=== PATIENT | female | born 1955 | race Caucasian/White ===

== ENCOUNTER 2019-11-01 14:13 | Outpatient (CLI) | payer MEDICARE, MEDICAID, SELFPAY ==
--- NOTE | 2019-11-01 14:24 | MM_ITS ---
WS: [id number] BILATERAL SCREENING DIGITAL MAMMOGRAM WITH CAD HISTORY: SCREENING COMPARISON: 08/19/2018 and 04/15/2017 Bilateral CC and MLO views submitted. Computer aided detection analyzed. Breast composition: There are scattered areas of fibroglandular density. No suspicious masses, microc alcifications or architectural distortion. MM/[place] [id number] IMPRESSION: BI-RADS: 1-Negative FOLLOW UP: 1 Year Follow-up
== END 2019-11-01 14:14 | disposition home or self-care (01) ==
LOC: RADSHAW 14:20
PROVIDERS: Family Provider Internal Medicine; PCP Internal Medicine; Visit Provider Internal Medicine
DX: Z12.31 Encounter for screening mammogram for malignant neoplasm of breast (principal)
CPT/HCPCS: 77067

== ENCOUNTER 2019-11-28 19:37 | Emergency (ER) | payer MEDICARE, MEDICAID, SELFPAY ==
[2019-11-28] VITALS (17 sets, daily range): BP systolic 139–165; BP diastolic 72–111; PULSE 75–85; RESP 16–18; TEMP 36.5; O2SAT 93–97; BMI 38.3
--- NOTE | 2019-11-28 20:08 | ED_ITS ---
Entered by Tata Amezcua, acting as scribe for Faisal Colin DO HPI - Female Genitourinary General: Chief complaint: Abdominal Pain Stated complaint: abd pain Time Seen by Provider: 11/28/19 20:07 Source: patient and family Mode of arrival: ambulatory History of Present Illness: HPI Narrative: 64 y/o female presents to the ED with complaint of painful urination. Pt states she has had some accompanying abd pain. MD elicited complaint: dysuria Severity: mild Urinary symptoms: Dysuria Associated symptoms: Reports abdominal pain; Deny headache(s), nausea or syncope Review of Systems Const: Denies: fever, chills, body aches, fatigue, malaise or night sweats Eyes: Denies: change in vision or blurry vision ENMT: Denies: throat pain, oral sores/lesions, dental pain, nasal discharge or nasal congestion Card: Denies: chest pain, palpitations, irregular heart rhythm, edema, syncope, shortness of breath on exertion, shortness of breath when lying down or leg pain with exertion Resp: Denies: shortness of breath, productive cough, non-productive cough or wheezing GI: Reports: abdominal pain; Denies: nausea, vomiting, vomiting blood, coffee grounds in vomit, difficulty swallowing, heartburn/indigestion, diarrhea, constipation, cramping, blood in stool or black tarry stool : Reports: painful urination, urinary frequency and urinary urgency; Denies: flank pain, urinary incontinence or blood in urine Musc: Denies: neck pain, back pain, extremity pain, extremity swelling, joint pain or joint swelling Skin/Breast: Denies: rash, itching or redness Neuro: Denies: headache, numbness in extremities, weakness in extremities, changes in sensation, lack of coordination, difficulty walking, frequent falls, dizziness, vertigo or confusion Psych: Denies: anxiety, depression, loss of interest, visual hallucinations, auditory hallucinations, suicidal ideation or homicidal ideation Endo: Denies: excessive urination, excessive thirst, tired all the time or cold intolerance Vickey/Lymph: Denies: easy bruising, easy bleeding, petechiae, enlarged lymph nodes or tender lymph nodes PFSH ED PFSH: Statuses (acute, chronic, etc) shown below reflect problem list status as previously entered and may not be historically accurate Social History Smoking and tobacco status: never smoked Physical Exam Const: COMMON NORMALS: average body habitus, oriented x3 and alert GENERAL APPEARANCE: cooperative, comfortable and well developed NUTRITIONAL APPEAR ANCE: obese ORIENTATION/CONSCIOUSNESS: Yes awake, Yes oriented to person and Yes oriented to place HENMT: COMMON NORMALS: normocephalic, head/scalp atraumatic, external ears normal, EAC's normal, TM's normal bilaterally, external nose normal, moist oral mucous membranes and oropharynx normal HEAD & SCALP: normocephalic and atraumatic NOSE: external nose normal EXTERNAL EAR: Yes external ears normal EXTERNAL AUDITORY CANAL: EAC's normal TYMPANIC MEMBRANE: TM's normal bilaterally MOUTH: oral and palatal mucosa normal, lip normal and tongue normal THROAT: posterior oropharynx normal and tonsils normal Eye: COMMON NORMALS: PERRL, EOMs intact bilaterally, conjunctivae normal and no scleral icterus CONJUNCTIVA: Yes conjunctivae normal PUPIL: Yes PERRL Neck/C-Spine: COMMON NORMALS: full ROM, no lymphadenopathy, supple, no meningeal signs and thyroid normal THYROID: thyroid normal and asymmetrical Lymph: LYMPHATIC: no lymphadenopathy noted Resp: COMMON NORMALS: normal respiratory effort, no retractions, no use of accessory muscles and clear to auscultation bilaterally AUSCULTATION: clear to auscultation bilaterally Cardio: COMMON NORMALS: regular rate and regular rhythm RATE: regular rate RHYTHM: regular rhythm HEART SOUNDS: no murmurs GI: COMMON NORMALS: normal to inspection, nondistended, normoactive bowel sounds, soft to palpation and no hepatosplenomegaly AUSCULTATION: Yes normoactive bowel sounds PALPATION: Yes soft and Yes no hepatosplenomegaly : COMMON NORMALS: Yes no CVA tenderness BLADDER/KIDNEY EXAM: Yes no CVA tenderness Back/Pelvis: COMMON NORMALS: no CVA tenderness LUMBAR SPINE/LOWER BACK: Yes normal to inspection Extremity: COMMON NORMALS: no clubbing, cyanosis or edema, no calf tenderness and no pedal edema Neuro: COMMON NORMALS: oriented x3 SENSORIUM/ORIENTATION: Yes alert, Yes oriented to person and Yes oriented to place MENINGEAL SIGNS: Yes no meningeal signs Skin: COMMON NORMALS: no rashes or lesions noted and skin turgor normal GENERAL SKIN EXAM: no rashes or lesions noted and turgor normal Course ED course: Reviewed findings with the patient's no evidence of cystitis. Discussed different options she would prefer to just go home she states she is feeling much better discharge home recheck in the emergency room if symptoms recur or worsen Vital Signs: Vital signs: Vital Signs Temperature 97.7 F 11/28/19 20:14 Pulse Rate 77 11/28/19 21:46 Respiratory Rate 18 11/28/19 21:46 Blood Pressure 160/77 11/28/19 21:46 Pulse Oximetry 94 11/28/19 21:46 MDM - Female Lab Data: Labs: Lab Results 11/28/19 11/28/19 11/28/19 Range/Units 20:20 20:20 21:15 WBC 6.8 (4.0-10.0) 10^3/ uL RBC 4.36 (4.1-5.3) 10^6/u L Hgb 12.9 (11.5-15.3) g/dL Hct 38.6 (37.0-47.0) % MCV 88.5 (81-99) fL MCH 29.6 (28.0-34.0) pg MCHC 33.4 (30.0-36.0) g/dL RDW 12.5 (12.1-15.1) % Plt Count 179 (130-400) 10^3/c mm MPV 11.0 H (7.4-10.4) fL Neut % (Auto) 53.5 % Lymph % (Auto) 31.8 % [place] % (Auto) 8.4 % Eos % (Auto) 5.9 % Baso % (Auto) 0.3 % Neut # (Auto) 3.6 (1.8-7.7) 10^3/u L Lymph # (Auto) 2.2 (0.8-4.8) 10^3/u L [place] # (Auto) 0.6 (0.2-0.9) 10^3/u L Eos # (Auto) 0.4 (0.0-0.8) 10^3/u L Baso # (Auto) 0.0 (0.0-0.1) 10^3/u L Nucleated RBC % (a uto) 0 % Nucleated RBCs # 0.0 /100WBC Sodium 137 (136-145) mmol/L Potassium 4.3 (3.5-5.1) mmol/L Chloride 102 (98-107) mmol/L Carbon Dioxide 25 (22-29) mmol/L Anion Gap 14.3 (5-19) BUN 26 H (8-23) mg/dL Creatinine 1.1 H (0.5-0.9) mg/dL GFR Calculation 49.8 L (90-130) mL/min Glucose 86 (74-106) mg/dL Calcium 9.5 (8.5-10.5) mg/dL Total Bilirubin 0.2 (0.15-1.2) mg/dL AST 36 H (0-32) U/L ALT 36 H (0-33) U/L Alkaline Phosphata se 68 (35-105) IU/L Total Protein 7.2 (6.6-8.7) g/dL Albumin 4.4 (3.5-5.2) g/dL Globulin 2.8 (1.3-4.6) g/dL Lipase 26 (13-60) U/L Urine Color Yellow (Yellow) Urine Appearance Clear (CLEAR) Urine pH 5 (5-7) Ur Specific Gravit y 1.025 (1.005-1.030) Urine Protein Neg (Negative) Urine Glucose (UA) Norm (Normal) Urine Ketones Negative (Negative) Urine Occult Blood Neg (Negative) Urine Nitrate Negative (Negative) Urine Bilirubin 1+ H (NEGATIVE) Urine Urobilinogen 4 H (Negative) mg/dL Ur Leukocyte Eva ase Negative (Negative) Discharge Plan Discharge Patient Disposition: Home, Self-Care Clinical Impression: Abdominal pain Condition: Stable Discharge Orders: Discharge Order (Routine); Ordered 11/28/19 Ordered By: Faisal Colin Referrals: [place] Hui MD [Primary Care Provider] - Discharge Diet: Advance as tolerated Discharge Activity: Resume usual activity Patient Instructions: Cholecystitis (ED), Abdominal Pain (ED) Discharge Date/Time: 11/28/19 21:46 Coding Level of Care Code ED Mailroom Clerk for Chg Fwd Exam Problem Focused The documentation recorded by the [employer] Ashley, accurately reflects the service I personally performed and the decisions made by Cristi moreira Curtis L, DO
[2019-11-28 20:28] LABS: Basophils % 0.3 %; Eosinophils # 0.4 10^3/uL (0.0-0.8); Eosinophils % 5.9 %; Hematocrit 38.6 % (37.0-47.0); Hemoglobin 12.9 g/dL (11.5-15.3); Lymphocytes # 2.2 10^3/uL (0.8-4.8); Lymphocytes % 31.8 %; Mean Corpuscular HGB Conc 33.4 g/dL (30.0-36.0); Mean Corpuscular Hemoglobin 29.6 pg (28.0-34.0); Mean Corpuscular Volume 88.5 fL (81-99); Monocytes # 0.6 10^3/uL (0.2-0.9); Monocytes % 8.4 %; Neutrophils # 3.6 10^3/uL (1.8-7.7); Neutrophils % 53.5 %; Nucleated Red Blood Cells % 0 %; Platelet Count 179 10^3/cmm (130-400); Red Blood Count 4.36 10^6/uL (4.1-5.3); Red Cell Distribution Width 12.5 % (12.1-15.1); White Blood Count 6.8 10^3/uL (4.0-10.0)
[2019-11-28 20:49] LABS: Alanine Aminotransferase 36 U/L (0-33); Albumin Level 4.4 g/dL (3.5-5.2); Alkaline Phosphatase 68 IU/L (35-105); Anion Gap 14.3 (5-19); Aspartate Amino Transferase 36 U/L (0-32); Blood Urea Nitrogen 26 mg/dL (8-23); Calcium 9.5 mg/dL (8.5-10.5); Carbon Dioxide 25 mmol/L (22-29); Chloride 102 mmol/L (98-107); Globulin 2.8 g/dL (1.3-4.6); Glomerular Filtration Rate 49.8 mL/min (90-130); Glucose 86 mg/dL (74-106); Lipase 26 U/L (13-60); Potassium 4.3 mmol/L (3.5-5.1); Sodium 137 mmol/L (136-145); Total Bilirubin 0.2 mg/dL (0.15-1.2); Total Protein 7.2 g/dL (6.6-8.7)
[2019-11-28 21:21] LABS: Add Urine Microscopic? NO
[2019-11-28 21:27] LABS: Glucose Urine UA Norm (Normal); Protein Urine Neg (Negative); Specific Gravity, Urine 1.025 (1.005-1.030); Urine Appearance Clear (CLEAR); Urine Color Yellow (Yellow); pH Urine 5 (5-7)
[2019-11-28 21:28] LABS: Bilirubin Urine 1+ (NEGATIVE); Blood Urine Neg (Negative); Ketones Urine Negative (Negative); Leukocyte Esterase Urine Negative (Negative); Nitrate Urine Negative (Negative); Urobilinogen Urine 4 mg/dL (Negative)
== END 2019-11-28 21:46 | disposition home or self-care (01) ==
PROVIDERS: Emergency Medicine; Emergency Provider Family Medicine; Family Provider Internal Medicine; PCP Internal Medicine
DX: R10.9 Unspecified abdominal pain (principal)
CPT/HCPCS: 36415; 80053; 81003; 83690; 85025; 99282

== ENCOUNTER 2019-12-04 21:35 | Emergency (ER) | payer MEDICARE, MEDICAID, SELFPAY ==
[2019-12-04 22:12] VITALS: BP 169/133; PULSE 88; RESP 18; TEMP 36.4; O2SAT 96; BMI 34.6
== END 2019-12-05 00:52 ==
LOC: ER 23:21
PROVIDERS: Emergency Provider Emergency Medicine; Family Provider Internal Medicine; PCP Internal Medicine
DX: Z53.21 Procedure and treatment not carried out due to patient leaving prior to being seen by health care provider (principal)
CPT/HCPCS: 99281; A9270

== ENCOUNTER → 2020-01-03 09:17 | Outpatient (BNVA) | payer MEDICARE, MEDICAID, SELFPAY | PROVIDERS: Family Provider Internal Medicine; PCP Internal Medicine; Referring Provider Internal Medicine; Visit Provider Obstetrics & Gynecology | DX: N81.10 Cystocele, unspecified (principal) | CPT/HCPCS: 81003 ==

== ENCOUNTER 2020-01-22 19:31 | Emergency (ER) | payer MEDICARE, MEDICAID, SELFPAY | END 2020-01-22 19:59 | disposition left against medical advice (07) | PROVIDERS: Emergency Provider Nurse Practitioner Family; Family Provider Internal Medicine; PCP Internal Medicine | DX: Z53.21 Procedure and treatment not carried out due to patient leaving prior to being seen by health care provider (principal) | CPT/HCPCS: 99281 ==

== ENCOUNTER 2020-03-28 12:50 | Observation (INO) | payer MEDICARE, MEDICAID, SELFPAY ==
[2020-03-28] VITALS (18 sets, daily range): BP systolic 118–162; BP diastolic 65–110; PULSE 72–130; RESP 12–25; TEMP 36.2–37; O2SAT 89–99
[2020-03-28] MEDS: sodium chloride 0.9% 1,000 ML 30 ML IV (10:30)
--- NOTE | 2020-03-28 10:33 | ANES.PREANE2 ---
Pre-Anesthetic Assessment Pre-Anesthetic Assessment: Height/Weight: Height 1.45 m Weight 70.307 kg Temp Pulse Resp BP Pulse Ox 97.6 F 72 18 162/110 99 03/28/20 09:57 03/28/20 09:57 03/28/20 09:57 03/28/20 09:57 03/28/20 09:57 Preop Diagnosis: Cystocele stage III Proposed Procedure: Operation Date: 03/28/20 11:10 Proposed Procedures p Anterior Repair Anterior [id number](Not Applicable) - Waylon Horton MD s Midurethral single incision sling 54364 Sacrospinous ligament suspension 19697(Not Applicable) - Waylon Horton MD Familial anesthetic complications: None Was Beta Jose taken within 24 hours: N/A Last intake: Intake Last Liquid Date 03/27/20 Last Liquid Time 13:00 Last Solid Date 03/27/20 Last Solid Time 15:15 Social: Comment: former smokre Exam: Pre-Anes Outpt Exam: alert, oriented x 3, clear to auscultation bilaterally and regular rate & rhythm Airway: Cervical ROM: WNL MP: 1 Additional comments: edentulous Pulmonary: Comments: albuterol inhaler CV/HEM: CV/HEM: HTN GI: GI: GERD Metabolic: Metabolic: Hyperlipidemia and Thyroid Anesthetic Plan: ASA status: 3 Anesthesia: General Risk of > 500 ml blood loss (7ml/kg in children): No Meds/Allergies Current Medications: Current Medications Generic Name Dose Route Start Last Admin Trade Name Freq PRN Reason Stop Dose Admin Sodium Chloride 1,000 mls @ 30 ml s/hr 03/28/20 07:45 03/28/20 10:30 Sodium Chloride 0.9% IV 03/29/20 07:44 30 mls/hr .Q24H PEDRO LUIS Administration PFSH Anesthesia PFSH: Family History Son Diabetes Hypertension Heart attack Family/Other Diabetes grandson Hypertension grandson Social History Smoking and tobacco status: former smoker Quit status (tobacco): has quit using tobacco Year quit tobacco: 1984 Alcohol intake: never Female Reproductive History: Para: 1 Data Anesthesia Cardiac Studies: No Data to Display
--- NOTE | 2020-03-28 10:39 | W.PM.OPSUD ---
Surgery/Procedure H&P Update DATE OF PROCEDURE: March 28, 2020 DATE H&P PERFORMED: 03/26/20 H&P UPDATE INFORMATION: I have reviewed H&P completed within last 30 days, I have examined patient prior to procedure and No changes to prior documentation PREOP DIAGNOSIS: Cystocele stage III PLANNED PROCEDURE: Operation Date: 03/28/20 11:10 Proposed Procedures p Anterior Repair Anterior [id number]/N81.10(Not Applicable) - Waylon Horton MD s Midurethral single incision sling 46211 Sacrospinous ligament suspension [id number](Not Applicable) - Waylon Horton MD
[2020-03-28 10:56] LABS: Basophils % 0.5 %; Eosinophils # 0.3 10^3/uL (0.0-0.8); Eosinophils % 4.6 %; Hematocrit 42.1 % (37.0-47.0); Hemoglobin 13.9 g/dL (11.5-15.3); Lymphocytes # 1.7 10^3/uL (0.8-4.8); Lymphocytes % 30.4 %; Mean Corpuscular Hemoglobin 30.8 pg (28.0-34.0); Mean Corpuscular Volume 93.3 fL (81-99); Mean Platelet Volume 11.7 fL (7.4-10.4); Monocytes # 0.4 10^3/uL (0.2-0.9); Monocytes % 6.7 %; Neutrophils # 3.3 10^3/uL (1.8-7.7); Neutrophils % 57.6 %; Nucleated Red Blood Cells % 0 %; Platelet Count 181 10^3/cmm (130-400); Red Blood Count 4.51 10^6/uL (4.1-5.3); Red Cell Distribution Width 11.9 % (12.1-15.1); White Blood Count 5.7 10^3/uL (4.0-10.0)
[2020-03-28 11:25] LABS: Alanine Aminotransferase 40 U/L (0-33); Albumin Level 4.7 g/dL (3.5-5.2); Alkaline Phosphatase 53 IU/L (35-105); Anion Gap 16.9 (5-19); Aspartate Amino Transferase 37 U/L (0-32); Blood Urea Nitrogen 23 mg/dL (8-23); Calcium 9.3 mg/dL (8.5-10.5); Carbon Dioxide 25 mmol/L (22-29); Chloride 103 mmol/L (98-107); Globulin 2.4 g/dL (1.3-4.6); Glomerular Filtration Rate 62.6 mL/min (90-130); Glucose 96 mg/dL (65-115); Osmolality Calculated 289 mOsm/kg (285-295); Potassium 3.9 mmol/L (3.5-5.1); Sodium 141 mmol/L (136-145); Total Bilirubin 0.3 mg/dL (0.15-1.2); Total Protein 7.1 g/dL (6.6-8.7)
[2020-03-28] MEDS: estrogens Conjugated Cream 30 gm 30 APPLIC VAGINAL (12:14)
[2020-03-28 12:20] LABS: Add Urine Culture? No; Add Urine Microscopic? YES; Bacteria Urine TRACE; Bilirubin Urine Neg (NEGATIVE); Blood Urine Neg (Negative); Glucose Urine UA Norm (Normal); Ketones Urine Negative (Negative); Leukocyte Esterase Urine Trace (Negative); Mucus Urine 1+; Nitrate Urine Negative (Negative); Protein Urine Neg (Negative); Squamous Epithelial Cell Urine 0-4 (0-5); Urine Appearance Clear (CLEAR); Urine Color Yellow (Yellow); Urobilinogen Urine 1 mg/dL (Negative)
--- NOTE | 2020-03-28 12:49 | P.OP_ITS ---
Operative Report Date of procedure: March 28, 2020 Pre-op Diagnosis: Cystocele stage III Post-op diagnosis: same Procedure Done: Anterior colporrhaphy augmented with allograft, bilateral sacrospinous ligament suspension and mid urethral sling Pathology: none sent Surgeon: Waylon Horton Anesthesia: General Estimated blood loss (mL): 50 IV fluids (mL): 900 Urine output (mL): 200 Complications: None Condition: stable Disposition: PACU Procedure: After obtaining informed consent, the patient was taken to the operating room and placed in the supine position, given general anesthesia, and prepped and draped in sterile fashion. The abdomen, vulva and vagina were prepped and draped in a sterile manner. A time out procedure was performed. The anterior vaginal mucosa beneath the midurethra was infiltrated with 0.5% Marcaine with epinephrine. A vertical midline incision was made beneath the midurethra, nearly 1.5 cm length. Careful submucosal dissection was performed bilaterally up to the interior portion of the inferior pubic ramus. The insertion of adductor longus tendon on the patient?s pubic ramus was identified as reference land josé miguel. Palpated the notch along the internal edge of ischiopubic ramus where the adductor longus tendon and the inferior pubic ramus meet. The Altis single incision sling (SIS) was selected. With thin porcine graft the mesh of the sling was lined anteriorly and posteriorly with the graft. Then the needle of the SIS inserted aiming at the location of this notch. One of the integrated self-fixating tips place onto the needle by sliding it over the end of the needle. The needle/sling assembly was inserted toward the location of identified reference notch making sure that the flat of the handle is perpendi cular to the desired path. The needle was tracked along the posterior surface of the ischiopubic ramus until the midline josé miguel on the mesh is approximately at the midline position under the urethra. The needle was removed and the same was repeated on the contralateral side until the appropriate sling tension under the urethra was achieved ensuring that the mesh lays flat. The needle was removed and vaginal incision was closed in a running interlocking fashion with 2-0 Vicryl. Then The vaginal mucosa was then injected in the midline with normal saline. The vaginal mucosa was scored in the midline with the Bovie approximately 1 cm medial to the urethral meatus to 1 cm distal to the vaginal cuff. This vaginal mucosa was then undermined and then incised in the midline with the Metzenbaum scissors. The lateral aspects of the vaginal mucosa were then grasped with the Allis clamps and the vaginal mucosa was then dissected off the underlying fascia with the Metzenbaum scissors. Again, there was noted to be quite a bit of oozing at the incision, which was controlled with cautery. After adequate dissection was performed, bilaterally. An ACell MatriStem Pelvic Floor Matrix is modified at time of application to fit spacea,3 x 3 cm piece . MatriStem PFM placed in front of cystocele ready to be implanted with the Basement Membrane facing the vagina mucosa. Suture is placed at distal end of graft and placed towards vaginal cuff. Final suture is placed on proximal portion of the graft to complete the placement overlying the bladder. Then Interrupted vertical mattress sutures of 0 Vicryl were used to elevate the cystocele superiorly. The excessive vaginal mucosa was then trimmed with the Metzenbaum scissors and the vaginal mucosa was then reapproximated in the running interlocking fashion with 2-0 Vicryl. The posterior vaginal mucosa is opened in the routine fashion. A finger is inserted through the incision in the posterior vaginal mucosa, dissecting out the rectovaginal space (RVS). The right rectal pillar (RRP) is identified. The rectal pillar can be bluntly perforated either with the finger and with the tip of a long Tran clamp. A Brejason-Navmayra retractor is used for exposing the rectovaginal space in order to enter the pararectal space with retraction of the cardinal ligament, vagina, and rectum. Displacing the rectum to the left and the cardinal ligament and ureter anteriorly. A sponge dissector is used to bluntly dissect the sacrospinous ligament removing areolar tissue. The ischial spine was palpated directly, and a area approximately 2 cm medial to the spine was selected for insertion of the Anchorsure transvaginal sacrospinous fixation system. One end of the suture of Anchoresure system inserted through the sacrospinous ligament is placed through the muscular layer of the vagina. In a similar manner, the second suture is placed. The opposite end of the suture in the sacrospinous ligament is left free and held on a small hemostat. Then traction on this suture will draw the vaginal vault directly to the ligament, where a square knot affixes it to the sacrospinous ligament. After the tom stich is tied the second safety stich is tied. Then the Garcia catheter was removed and cystoscope was inserted. The bladder was filled with sterile water. Complete evaluation of the bladder mucosa was performed noting no lacerations, dimpling, tears, bleeding of the mucosa or muscular layers. Both ureteral orifices were identified. Prompt excretion of urine from both ureteral orifices was noted. Cystoscope was withdrawn. The Garcia catheter was replaced. Excellent hemostasis was obtained. A vaginal pack is placed overnight as postoperative support for the vaginal tissues after graft placement and closure of vaginal incisions. Sponge, lap, needle, and instrument counts were correct times three. The patient was taken to the recovery room, awake and in stable condition.
[2020-03-28] MEDS: ipratropium 0.5 mg/2.5 mL Neb INHALATION (13:14)
--- NOTE | 2020-03-28 13:36 | SUR.PHASEI ---
1308 PT TO PACU AWAKES TO VOICE BUT REMAINS SLEEPY, SATS 91% ALBUTEROL ATROVENT NEB ORDERED PT LUNGS BILAT DIM BASES OTHER WITH FEW CRACKLES NOTED 1314 NEB TX STARTED, PT MORE ALERT HOB AT 45 DEGEES BILAT SCDSON BALL TO DD YELLOW URINE IN TUB AND BAG. [address] CORREA AT BEDSIDE BREVIBLOC IVP GIVEN BY , FOR HR OF 130 ST. 1340 PT ALRT ON 3LNC PT TALKATIVE WANTS TO EAT, VSS ABD SOFT
--- NOTE | 2020-03-28 14:41 | SUR.PHASEI ---
1410 PT TO ROOM ALERT MOVED SELF TO BED BALL PATENT YELLOW URINE, PT REQUESTS FOOD TO EAT AND WANTS HER BELONGINGS, HER BAG AND WALKER GIVEN TO PT. VSS. HR 114 , SATS ON 3LNC 94% BP 125/65
[2020-03-28] MEDS: ketorolac 30 mg/mL INJ IVP ×2 (15:07→20:38)
[2020-03-28] MEDS: dextrose 5%-lactated ringers 1,000 ML 125 ML IV ×2 (15:07→23:12)
[2020-03-28] MEDS: triamcinolone 0.1% cream 15 gm 1 APPLIC TOPICAL (17:16)
[2020-03-28] MEDS: baclofen 10 mg Tablet PO (17:39)
[2020-03-28] MEDS: pantoprazole DR 40 mg Tablet PO (17:40)
[2020-03-28] MEDS: docusate sodium 100 mg Capsule PO (17:40)
[2020-03-28] MEDS: naproxen 500 mg Tablet PO (17:40)
[2020-03-28] MEDS: hyDROXYzine 25 mg Capsule PO ×2 (17:40→17:41)
[2020-03-28] MEDS: LORazepam 0.5 mg Tablet PO (17:40)
[2020-03-28] MEDS: albuterol 8 gm MDI 2 PUFF INHALATION (23:11)
[2020-03-29] VITALS (8 sets, daily range): BP systolic 117–144; BP diastolic 70–85; PULSE 67–86; RESP 16–18; TEMP 36.3–36.8; O2SAT 96–99
[2020-03-29] MEDS: ketorolac 30 mg/mL INJ IVP ×2 (02:55→07:43)
[2020-03-29 05:55] LABS: Hematocrit 35.5 % (37.0-47.0); Hemoglobin 11.5 g/dL (11.5-15.3); Mean Corpuscular HGB Conc 32.4 g/dL (30.0-36.0); Mean Corpuscular Hemoglobin 30.6 pg (28.0-34.0); Mean Corpuscular Volume 94.4 fL (81-99); Mean Platelet Volume 12.3 fL (7.4-10.4); Platelet Count 140 10^3/cmm (130-400); Red Blood Count 3.76 10^6/uL (4.1-5.3); Red Cell Distribution Width 12.1 % (12.1-15.1); White Blood Count 9.7 10^3/uL (4.0-10.0)
--- NOTE | 2020-03-29 06:19 | PC.NURSE ---
SHIFT SUMMARY Has rested well tonight. Had no c/o pain with only receiving scheduled IV Toradol dosages. Says abdomen is a little sore Only used one pad all shift with only scant amt brownish red drainage. Vaginal packing was removed this morning easily. Garcia catheter also removed. Ambulated in [place] with walker and one assist. Did well and to chair after walk. Is hoping to go home this morning. IV infusing at 125ml/hr rate and taking po well. Is very pleasant
[2020-03-29] MEDS: dextrose 5%-lactated ringers 1,000 ML 125 ML IV ×2 (07:42→07:46)
[2020-03-29] MEDS: levothyroxine 25 mcg Tablet 75 MCG PO (08:28)
[2020-03-29] MEDS: cetirizine 10 mg Tablet PO (08:29)
[2020-03-29] MEDS: pantoprazole DR 40 mg Tablet PO (08:29)
[2020-03-29] MEDS: donepezil 5 MG Tablet 10 MG PO (08:29)
[2020-03-29] MEDS: memantine 5 mg tablet 10 MG PO (08:29)
[2020-03-29] MEDS: naproxen 500 mg Tablet PO (08:29)
[2020-03-29] MEDS: hyDROXYzine 25 mg Capsule PO (08:29)
[2020-03-29] MEDS: atorvastatin 40 mg Tablet 20 MG PO (08:29)
[2020-03-29] MEDS: docusate sodium 100 mg Capsule PO (08:30)
[2020-03-29] MEDS: citalopram 20 mg Tablet PO (08:30)
[2020-03-29] MEDS: baclofen 10 mg Tablet PO (08:30)
[2020-03-29] MEDS: LORazepam 0.5 mg Tablet PO (08:30)
[2020-03-29] MEDS: fluticasone nasal spray 16gm Btl 1 SPRAY INTRANASAL (08:35)
[2020-03-29] MEDS: triamcinolone 0.1% cream 15 gm 1 APPLIC TOPICAL (08:36)
[2020-03-29] MEDS: silver sulfadiazine cream 1% 50 gm 1 APPLIC TOPICAL (08:36)
--- NOTE | 2020-03-29 08:42 | PC.NURSE ---
peripad sm to med amt of blood on pad.
[2020-03-29] MEDS: albuterol 8 gm MDI 2 PUFF INHALATION (09:41)
--- NOTE | 2020-03-29 09:49 | PC.NURSE ---
Bladder scanned 44ml scanned.
--- NOTE | 2020-03-29 10:12 | P.DS_ITS ---
Discharge Providers POSTAL SORTING OFFICER Date of Admission: 03/28/20 12:50 Date of Discharge: 03/29/20 Attending Provider at Admission: Waylon Horton MD Attending Provider at Discharge: Waylon Horton MD Primary Care Provider: [place] Hui MD Diagnoses at Discharge Discharge Diagnosis (1) POP-Q stage 3 cystocele: Status: Acute Problem details: Status post anterior colporrhaphy augmented with allograft with bilateral sacrospinous ligament suspension and mid urethral sling day 1. Reason for Visit Reason for Visit: BLADDER Hospital Course Discharge Summary: 65-year-old female with POP-Q cystocele stage III, Admitted for an anterior colporrhaphy augmented with allograft with bilateral sacrospinous ligament suspension and mid urethral sling. The procedure were performed without complications. Overnight observation uneventful, she is afebrile and hemodynamically stable. Tolerating diet well. Ambulating without difficulty. Refer passing flatus. Physical Exam Narrative: EXAM NARRATIVE: GA: Alert and oriented ?3. HEENT: WNL. Heart: Regular rate and rhythm. Lungs: Clear to auscultation bilaterally. Abdomen: Bowel sounds present, nontender, minimal tenderness, incision clean and dry, no redness, pain or edema. CHEERLEADING COACH: No bleeding. Extremities: No edema, no cyanosis, no calves pain. Urinary Catheter Management^: Garcia: Cath Placed During This Visit: yes Urinary Catheter Date of Insertion: 03/28/20 Urinary Catheter Time of Insertion: 11:20 Discharge Data Data Completed and Pending: Labs from last 24 hours 03/29/20 03/28/20 03/28/20 05:02 10:20 10:20 WBC 9.7 RBC 3.76 L Hgb 11.5 Hct 35.5 L MCV 94.4 MCH 30.6 MCHC 32.4 RDW 12.1 Plt Count 140 MPV 12.3 H Neut % (Auto) Lymph % (Auto) [place] % (Auto) Eos % (Auto) Baso % (Auto) Neut # (Auto) Lymph # (Auto) [place] # (Auto) Eos # (Auto) Baso # (Auto) Nucleated RBC % (a uto) Nucleated RBCs # Sodium Potassium Chloride Carbon Dioxide Anion Gap BUN Creatinine GFR Calculation Glucose Calculated Osmolal ity Calcium Total Bilirubin AST ALT Alkaline Phosphata se Total Protein Albumin Globulin Urine Color Yellow Urine Appearance Clear Urine pH 5.0 Ur Specific Gravit y 1.020 Urine Protein Neg Urine Glucose (UA) Norm Urine Ketones Negative Urine Blood Neg Urine Nitrate Negative Urine Bilirubin Neg Urine Urobilinogen 1 H Ur Leukocyte Eva ase Trace H Urine RBC None Urine WBC None Ur Squamous Epith Cells 0-4 H Urine Bacteria Trace Urine Mucus 1+ Blood Type O Positive Rho(D) Type Positive Antibody Screen Negative 03/28/20 03/28/20 10:20 10:20 WBC 5.7 RBC 4.51 Hgb 13.9 Hct 42.1 MCV 93.3 MCH 30.8 MCHC 33.0 RDW 11.9 L Plt Count 181 MPV 11.7 H Neut % (Auto) 57.6 Lymph % (Auto) 30.4 [place]ke % (Auto) 6.7 Eos % (Auto) 4.6 Baso % (Auto) 0.5 Neut # (Auto) 3.3 Lymph # (Auto) 1.7 [place]ke # (Auto) 0.4 Eos # (Auto) 0.3 Baso # (Auto) 0.0 Nucleated RBC % (a uto) 0 Nucleated RBCs # 0.0 Sodium 141 Potassium 3.9 Chloride 103 Carbon Dioxide 25 Anion Gap 16.9 BUN 23 Creatinine 0.9 GFR Calculation 62.6 L Glucose 96 Calculated Osmolal ity 289 Calcium 9.3 Total Bilirubin 0.3 AST 37 H ALT 40 H Alkaline Phosphata se 53 Total Protein 7.1 Albumin 4.7 Globulin 2.4 Urine Color Urine Appearance Urine pH Ur Specific Gravit y Urine Protein Urine Glucose (UA) Urine Ketones Urine Blood Urine Nitrate Urine Bilirubin Urine Urobilinogen Ur Leukocyte Eva ase Urine RBC Urine WBC Ur Squamous Epith Cells Urine Bacteria Urine Mucus Blood Type Rho(D) Type Antibody Screen Vitals: Last Vital Signs Temp 97.7 F 03/29/20 07:09 Pulse 75 03/29/20 09:44 Resp 18 03/29/20 09:38 BP 127/74 03/29/20 07:09 Pulse Ox 99 03/29/20 09:38 Discharge Plan Discharge Patient Disposition: Home, Self-Care Condition: Stable Prescriptions: [place] 5-325 mg tablet 1 tab PO QID PRN (Reason: pain) Qty: 20 RF: 0 ibuprofen 600 mg tablet 600 mg PO TID PRN (Reason: fever or pain) Qty: 60 RF: 0 No Action donepezil 10 mg tablet 10 mg PO DAILY Qty: 90 RF: 2 cetirizine 10 mg tablet 10 mg PO DAILY RF: 0 omeprazole 40 mg capsule,delayed release(DR/EC) 40 mg PO BID RF: 0 triamcinolone acetonide 0.1 % cream 1 applic TOPICAL BID RF: 0 simvastatin 40 mg tablet 40 mg PO DAILY RF: 0 levothyroxine 75 mcg tablet 75 mcg PO DAILY RF: 0 citalopram 20 mg tablet 20 mg PO DAILY RF: 0 lorazepam 0.5 mg tablet 0.5 mg PO BID RF: 0 baclofen 10 mg tablet 10 mg PO BID RF: 0 hydroxyzine HCl 25 mg tablet 25 mg PO BID RF: 0 azelastine 137 mcg (0.1 %) aerosol,spray 2 spray INTRANASAL BID RF: 0 albuterol sulfate 90 mcg/actuation HFA aerosol inhaler 2 puff INHALATION BID RF: 0 fluticasone propionate 50 mcg/actuation spray,suspension 50 mcg INTRANASAL DAILY RF: 0 naproxen 500 mg tablet 500 mg PO BID RF: 0 memantine 10 mg tablet 10 mg PO DAILY RF: 0 Discharge Orders: Discharge Order (Routine); Ordered 03/29/20 Ordered By: Waylon Horton Referrals: Waylon Horton MD [Physician] - Discharge Diet: Regular Discharge Activity: Increase activity as tolerated Patient Instructions: Anterior Vaginal Repair (DC), Bladder Sling Procedures (DC) Activity Restrictions/Additional Instructions: Pelvic rest for 6 weeks (no sex, no tampons, no vaginal douches). Return to the emergency room if any fever, increased bleeding or pain. POST-OPERATIVE INSTRUCTIONS FOR VAGINAL PROLAPSE, RECONSTRUCTION AND SLING SURGERY 1. You have just had vaginal surgery for prolapse and reconstruction. It is common to experience vaginal bleeding or spotting and even difficulty in urinary stream or bowel movements for a short period of time. 2. Try to void by the clock every two to three hours (timed voiding) for the next few weeks, and avoid letting your bladder get over distended. 3. Avoid constipation. Stool softeners and fiber twice a day are good ways to minimize constipation and reduce pelvic pain and inflammation. 4. Sitz baths (hot salt water baths) once or twice daily can be used to aid in the vaginal and pelvic discomfort. You can readily obtain a Sitz bath that will sit in your toilet at home at any large pharmacy or medical supply house. 5. Other than the Sitz.bath, nothing inside the vagina. No intercourse until Dr. De Paz performs a follow up exam. 6. No heavy lifting (anything heavier than the phone book) for two to four weeks after the operation. 7. It is very common to have a suprapubic tube inserted to help drain the bladder and help with bladder training after major vaginal or pelvic reconstruction. If you have a suprapubic tube, please refer to the instruction sheet for suprapubic tube care. 8. After discharge from the hospital Dr. Horton will need to see you for a limited pelvic exam and urine check roughly two to three weeks after the operation. At this visit, if things look well, some restrictions may be lifted and you will be able to drive and get back to limited physical activity. Many women will need to take a full six weeks off from their jobs or any heavy physical activity until the vaginal area is completed healed. After the first postoperative' visit, Dr. De Paz will then make another appointment to see you four to six weeks after the first visit (roughly two months after the operation) and if complete healing has occurred, unrestricted physical activity, intercourse, swimming and heavy lifting may be undertaken. 9. Remember: itching is very common in the healing phase, and may not necessarily indicate a vaginal infection (such as a yeast infection). For any questions regarding post-operative care, or any concerns that arise, please contact the office Discharge Attestations POSTAL SORTING OFFICER Time Spent in Discharge Care*: greater than 30 min Specific Discharge Activities: Specific discharge activities: educating patient Coding Level of Care Code Acute Information Technology Director for Mikael Landis Diagnoses POP-Q stage 3 cystocele N81.10
== END 2020-03-29 12:45 | disposition home or self-care (01) ==
LOC: MEDSURG 12:51
PROVIDERS: Admitting Provider Obstetrics & Gynecology; PCP Internal Medicine; Visit Provider Obstetrics & Gynecology
PROC: 0JQC0ZZ Repair Pelvic Region Subcutaneous Tissue and Fascia, Open Approach (ICD-10-PCS; CPT 57240; principal; 2020-03-28 11:10)
PROC: (CPT 57288; 2020-03-28 11:10)
DX: N81.10 Cystocele, unspecified (principal); Z87.891 Personal history of nicotine dependence; I10 Essential (primary) hypertension; K21.9 Gastro-esophageal reflux disease without esophagitis; E78.5 Hyperlipidemia, unspecified
CPT/HCPCS: 57240; 57267; 57282; 57288; 12345; 36415; 80053; 81001; 85025; 85027; 86850; 86900; 94640; 96374; 96375; C1713; C1762; G0378; J0690; J1100; J1885; J2001; J2405; J2704; J2710; J3010; J3490; J3535; J7030; J7611; J7644

== ENCOUNTER 2020-04-16 08:13 | Outpatient (CLI) | payer MEDICARE, MEDICAID, SELFPAY | END 2020-04-16 08:14 | disposition home or self-care (01) | LOC: WOUND 08:16 | PROVIDERS: PCP Internal Medicine; Visit Provider Nurse Practitioner Family | DX: T21.21XA Burn of second degree of chest wall, initial encounter (principal); T79.9XXA Unspecified early complication of trauma, initial encounter; X08.8XXA Exposure to other specified smoke, fire and flames, initial encounter | CPT/HCPCS: 11042 ==

== ENCOUNTER 2020-04-23 08:08 | Outpatient (CLI) | payer MEDICARE, MEDICAID, SELFPAY | END 2020-04-23 08:09 | disposition home or self-care (01) | LOC: WOUND 08:10 | PROVIDERS: PCP Internal Medicine; Visit Provider Nurse Practitioner Family | DX: T21.21XA Burn of second degree of chest wall, initial encounter (principal); T79.9XXA Unspecified early complication of trauma, initial encounter; X08.8XXA Exposure to other specified smoke, fire and flames, initial encounter | CPT/HCPCS: 11042 ==

== ENCOUNTER 2020-05-07 09:05 | Outpatient (CLI) | payer MEDICARE, MEDICAID, SELFPAY | END 2020-05-07 09:06 | disposition home or self-care (01) | LOC: WOUND 09:06 | PROVIDERS: PCP Internal Medicine; Visit Provider Emergency Medicine | DX: Z09 Encounter for follow-up examination after completed treatment for conditions other than malignant neoplasm (principal) | CPT/HCPCS: 99212 ==

== ENCOUNTER 2020-06-04 13:35 | Outpatient (CLI) | payer MEDICARE, MEDICAID, SELFPAY | END 2020-06-04 13:36 | disposition home or self-care (01) | LOC: WOUND 13:36 | PROVIDERS: PCP Internal Medicine; Visit Provider Emergency Medicine | DX: L98.491 Non-pressure chronic ulcer of skin of other sites limited to breakdown of skin (principal) | CPT/HCPCS: 11042; 16020 ==

== ENCOUNTER 2020-06-11 13:05 | Outpatient (CLI) | payer MEDICARE, MEDICAID, SELFPAY | END 2020-06-11 13:06 | disposition home or self-care (01) | LOC: WOUND 13:06 | PROVIDERS: PCP Internal Medicine; Visit Provider Nurse Practitioner Family | DX: L98.491 Non-pressure chronic ulcer of skin of other sites limited to breakdown of skin (principal) | CPT/HCPCS: 11042 ==

== ENCOUNTER 2020-06-18 13:27 | Outpatient (CLI) | payer MEDICARE, MEDICAID, SELFPAY | END 2020-06-18 13:28 | disposition home or self-care (01) | LOC: WOUND 13:28 | PROVIDERS: PCP Internal Medicine; Visit Provider Nurse Practitioner Family | DX: T21.01XA Burn of unspecified degree of chest wall, initial encounter (principal); T31.10 Burns involving 10-19% of body surface with 0% to 9% third degree burns; T79.9XXA Unspecified early complication of trauma, initial encounter; X08.8XXA Exposure to other specified smoke, fire and flames, initial encounter | CPT/HCPCS: 99212 ==

== ENCOUNTER 2020-06-25 11:02 | Outpatient (CLI) | payer MEDICARE, MEDICAID, SELFPAY | END 2020-06-25 11:03 | disposition home or self-care (01) | LOC: WOUND 11:03 | PROVIDERS: PCP Internal Medicine; Visit Provider Nurse Practitioner Family | DX: Z09 Encounter for follow-up examination after completed treatment for conditions other than malignant neoplasm (principal) | CPT/HCPCS: 99212 ==

== ENCOUNTER 2020-06-29 16:30 | Emergency (ER) | payer MEDICARE, MEDICAID, SELFPAY ==
[2020-06-29 16:37] VITALS: BP 125/64; PULSE 94; RESP 18; TEMP 36.5; O2SAT 96; BMI 35.2
[2020-06-29 18:08] LABS: Basophils % 0.4 %; Eosinophils # 0.3 10^3/uL (0.0-0.8); Eosinophils % 3.8 %; Hematocrit 37.6 % (37.0-47.0); Hemoglobin 12.3 g/dL (11.5-15.3); Lymphocytes # 1.7 10^3/uL (0.8-4.8); Mean Corpuscular HGB Conc 32.7 g/dL (30.0-36.0); Mean Corpuscular Hemoglobin 30.4 pg (28.0-34.0); Mean Corpuscular Volume 93.1 fL (81-99); Mean Platelet Volume 11.3 fL (7.4-10.4); Monocytes # 0.5 10^3/uL (0.2-0.9); Monocytes % 6.5 %; Neutrophils # 4.74 10^3/uL (1.8-7.7); Nucleated Red Blood Cells % 0 %; Platelet Count 160 10^3/cmm (130-400); Red Blood Count 4.04 10^6/uL (4.1-5.3); Red Cell Distribution Width 11.8 % (12.1-15.1); White Blood Count 7.2 10^3/uL (4.0-10.0)
--- NOTE | 2020-06-29 18:12 | XRR_ITS ---
PROCEDURE INFORMATION: Exam: XR Abdomen, 1 View Exam date and time: 06/29/2020 6:30 PM Age: 65 years old Clinical indication: Pain; Patient status: Conscious; Pain: Abo; Additional info: Abd pain TECHNIQUE: Imaging protocol: XR of the abdomen. Views: Frontal supine view of the abdomen. 1 View. COMPARISON: No relevant prior studies available. FINDINGS: Lungs: Visualized lungs are clear. Gastrointestinal tract: Increased fecal content in the colon. Nonobstructive bowel gas pattern. Intraperitoneal space: No free intraperitoneal air. Organs: No organomegaly. Bones/joints: Multilevel degenerative changes of varying severity in the visualized spine. Soft tissues: No pathologic calcifications. No pathologic calcifications. XR/XR KUB [id number] IMPRESSION: 1. Nonobstructed bowel gas pattern. 2. Increased fecal content in the colon. 3. Incidental/nonacute findings are listed in the report.
--- NOTE | 2020-06-29 18:13 | W.ED.ABDPA2 ---
HPI - Abdominal Pain General: Chief Complaint: Abdominal Pain Stated Complaint: Abd pain Time Seen by Provider: 06/29/20 18:06 Source: patient Mode of arrival: ambulatory Limitations: no limitations History of Present Illness: HPI narrative: Patient comes in with generalized abdominal pain for the last week. Patient states passing of gas relieves the pain. Patient appears well. Patient appears in no acute distress. Patient denies any blood in stool. Patient denies any vomiting. Patient is pain-free at this time. Review of Systems General: Reports: 10 or more systems reviewed and unremarkable except in HPI and below GI: Reports: abdominal pain PFS ED PFSH: Family History Son Diabetes Hypertension Heart attack Family/Other Diabetes grandson Hypertension grandson Social History Smoking and tobacco status: former smoker Quit status (tobacco): has quit using tobacco Year quit tobacco: 1984 Alcohol intake: never Female Reproductive History: Para: 1 Physical Exam Const: COMMON NORMALS: no acute distress and patient oriented x3 GENERAL APPEARANCE: cooperative HENMT: COMMON NORMALS: normocephalic and Normal external nose present HEAD & SCALP: normal to inspection and normocephalic NOSE: Normal external nose present MOUTH: Normal oral and palatal mucosa present THROAT: posterior oropharynx normal Eye: GENERAL EYE: appearance normal, both eyes and all related structures Neck/C-Spine: COMMON NORMALS: full ROM Chest: COMMONS NORMALS: normal inspection of the chest Resp: COMMON NORMALS: normal respiratory effort EFFORT & INSPECTION: Yes able to speak in complete sentences Cardio: COMMON NORMALS: regular rate and regular rhythm RATE: regular rate RHYTHM: regular rhythm GI: COMMON NORMALS: Soft to palpation and non-tender AUSCULTATION: Yes normoactive bowel sounds PALPATION: Yes Soft to palpation : COMMON NORMALS: Yes no CVA tenderness BLADDER/KIDNEY EXAM: Yes no CVA tenderness Back/Pelvis: COMMON NORMALS: no CVA tenderness and thoracic and lumbar spine normal to inspection Extremity: COMMON NORMALS: normal to inspection Neuro: COMMON NORMALS: patient oriented x3 and moves all extremities Psych: COMMON NORMALS: mental status grossly normal and cooperative Skin: COMMON NORMALS: no rashes or lesions noted GENERAL SKIN EXAM: no rashes or lesions noted Course Vital Signs: Vital signs: Vital Signs Temperature 97.7 F 06/29/20 16:37 Pulse Rate 94 06/29/20 16:37 Respiratory Rate 18 06/29/20 16:37 Blood Pressure 125/64 06/29/20 16:37 Pulse Oximetry 96 06/29/20 16:37 MDM - Abdominal Pain MDM Narrative: Medical decision making narrative: Well-appearing elderly female comes in today with some generalized abdominal pain that is relieved with passing of gas. Exam notes a soft abdomen with normal bowel sounds. Negative guarding and rebound tenderness. Vital signs are normal. Differential diagnosis includes but not limited to constipation, diverticulitis, enterocolitis. Laboratory values noted normal white blood cell count and hemoglobin hematocrit. Metabolic panel noted no abnormalities in liver enzymes, hyperglycemia, or sodium or potassium abnormality. KUB noted normal bowel gas pattern. No significant signs for an surgical abdomen was noted. Patient was pain-free. Reviewed remainder of exam and recommendations for further treatment with follow-up for primary care. Patient reports understanding of care plan and need for follow-up. Lab Data: Labs: Lab Results 06/29/20 06/29/20 Range/Units 17:54 17:54 WBC 7.2 (4.0-10.0) 10^3/ uL RBC 4.04 L (4.1-5.3) 10^6/u L Hgb 12.3 (11.5-15.3) g/dL Hct 37.6 (37.0-47.0) % MCV 93.1 (81-99) fL MCH 30.4 (28.0-34.0) pg MCHC 32.7 (30.0-36.0) g/dL RDW 11.8 L (12.1-15.1) % Plt Count 160 (130-400) 10^3/c mm MPV 11.3 H (7.4-10.4) fL Neut % (Auto) 66.0 % Lymph % (Auto) 23.0 % [place] % (Auto) 6.5 % Eos % (Auto) 3.8 % Baso % (Auto) 0.4 % Neut # (Auto) 4.74 (1.8-7.7) 10^3/u L Lymph # (Auto) 1.7 (0.8-4.8) 10^3/u L [place] # (Auto) 0.5 (0.2-0.9) 10^3/u L Eos # (Auto) 0.3 (0.0-0.8) 10^3/u L Baso # (Auto) 0.0 (0.0-0.1) 10^3/u L Nucleated RBC % (a uto) 0 % Nucleated RBCs # 0.0 /100WBC Sodium 142 (136-145) mmol/L Potassium 4.4 (3.5-5.1) mmol/L Chloride 106 (98-107) mmol/L Carbon Dioxide 30 H (22-29) mmol/L Anion Gap 10.4 (5-19) BUN 26 H (8-23) mg/dL Creatinine 0.9 (0.5-0.9) mg/dL GFR Calculation 62.6 L (90-130) mL/min Glucose 120 H (65-115) mg/dL Calculated Osmolal ity 292 (285-295) mOsm/k g Calcium 9.0 (8.5-10.5) mg/dL Total Bilirubin 0.2 (0.15-1.2) mg/dL AST 23 (0-32) U/L ALT 24 (0-33) U/L Alkaline Phosphata se 52 (35-105) IU/L Total Protein 6.9 (6.6-8.7) g/dL Albumin 4.2 (3.5-5.2) g/dL Globulin 2.7 (1.3-4.6) g/dL Discharge Plan Discharge Patient Disposition: Home Clinical Impression: Flatus Abdominal pain Qualifiers: Abdominal location: generalized Qualified Code(s): R10.84 - Generalized abdominal pain Condition: Stable Prescriptions: No Action donepezil 10 mg tablet 10 mg PO DAILY Qty: 90 RF: 2 [place] 5-325 mg tablet 1 tab PO QID PRN (Reason: pain) Qty: 20 RF: 0 ibuprofen 600 mg tablet 600 mg PO TID PRN (Reason: fever or pain) Qty: 60 RF: 0 cetirizine 10 mg tablet 10 mg PO DAILY RF: 0 omeprazole 40 mg capsule,delayed release(DR/EC) 40 mg PO BID RF: 0 triamcinolone acetonide 0.1 % cream 1 applic TOPICAL BID RF: 0 simvastatin 40 mg tablet 40 mg PO DAILY RF: 0 levothyroxine 75 mcg tablet 75 mcg PO DAILY RF: 0 citalopram 20 mg tablet 20 mg PO DAILY RF: 0 lorazepam 0.5 mg tablet 0.5 mg PO BID RF: 0 baclofen 10 mg tablet 10 mg PO BID RF: 0 hydroxyzine HCl 25 mg tablet 25 mg PO BID RF: 0 azelastine 137 mcg (0.1 %) aerosol,spray 2 spray INTRANASAL BID RF: 0 albuterol sulfate 90 mcg/actuation HFA aerosol inhaler 2 puff INHALATION BID RF: 0 fluticasone propionate 50 mcg/actuation spray,suspension 50 mcg INTRANASAL DAILY RF: 0 naproxen 500 mg tablet 500 mg PO BID RF: 0 memantine 10 mg tablet 10 mg PO DAILY RF: 0 Discharge Orders: Discharge Order (Routine); Ordered 06/29/20 Ordered By: Ferdinand Lepe Referrals: [place] Hui MD [Primary Care Provider] - Discharge Diet: Usual diet Discharge Activity: Increase activity as tolerated Patient Instructions: Abdominal Pain (ED) Activity Restrictions/Additional Instructions: Home and rest. Regular diet. Drink plenty of fluids. Activity as tolerated. Monitor for fever, worsening pain, or blood in stool. Return to the emergency department for any of the signs. Follow-up with primary care as needed. Coding Level of Care Code ED Manager Registration for Mikael Landis Exam Comprehensive
[2020-06-29 18:29] LABS: Alanine Aminotransferase 24 U/L (0-33); Albumin Level 4.2 g/dL (3.5-5.2); Alkaline Phosphatase 52 IU/L (35-105); Aspartate Amino Transferase 23 U/L (0-32); Blood Urea Nitrogen 26 mg/dL (8-23); Carbon Dioxide 30 mmol/L (22-29); Chloride 106 mmol/L (98-107); Globulin 2.7 g/dL (1.3-4.6); Glomerular Filtration Rate 62.6 mL/min (90-130); Glucose 120 mg/dL (65-115); Osmolality Calculated 292 mOsm/kg (285-295); Sodium 142 mmol/L (136-145); Total Bilirubin 0.2 mg/dL (0.15-1.2); Total Protein 6.9 g/dL (6.6-8.7)
[2020-06-29 18:32] LABS: Anion Gap 10.4 (5-19); Potassium 4.4 mmol/L (3.5-5.1)
== END 2020-06-29 19:23 | disposition home or self-care (01) ==
PROVIDERS: Family Medicine; Emergency Provider Nurse Practitioner Family; PCP Internal Medicine
DX: R10.84 Generalized abdominal pain (principal); R14.3 Flatulence; Z87.891 Personal history of nicotine dependence
CPT/HCPCS: 12345; 36415; 74018; 80053; 85025; 99282; 99283

== ENCOUNTER 2020-07-26 12:20 | Outpatient (RCR) | payer MEDICARE, MEDICAID, SELFPAY | END 2020-08-25 23:59 | disposition home or self-care (01) | LOC: SPT 12:20 | PROVIDERS: PCP Internal Medicine; Referring Provider Internal Medicine; Visit Provider Internal Medicine | DX: M54.5 Low back pain (principal) | CPT/HCPCS: 97110; 97161 ==

== ENCOUNTER 2020-08-26 06:00 | Outpatient (RCR) | payer MEDICARE, MEDICAID, SELFPAY | END 2020-09-24 23:59 | disposition home or self-care (01) | LOC: SPT 06:00 | PROVIDERS: PCP Internal Medicine; Referring Provider Internal Medicine; Visit Provider Internal Medicine | DX: M54.5 Low back pain (principal) | CPT/HCPCS: 97110 ==

== ENCOUNTER → 2020-10-09 09:11 | Outpatient (BNVA) | payer MEDICARE, MEDICAID, SELFPAY | PROVIDERS: PCP Internal Medicine; Visit Provider Specialist | DX: G30.9 Alzheimer's disease, unspecified (principal); F02.80 Dementia in other diseases classified elsewhere, unspecified severity, without behavioral disturbance, psychotic disturbance, mood disturbance, and anxiety; Z87.891 Personal history of nicotine dependence | CPT/HCPCS: 99213 ==

== ENCOUNTER 2020-11-20 11:57 | Outpatient (RCR) | payer MEDICARE, MEDICAID, SELFPAY | END 2020-11-25 23:59 | disposition home or self-care (01) | LOC: SPT 11:57 | PROVIDERS: PCP Internal Medicine; Visit Provider Internal Medicine | DX: R26.9 Unspecified abnormalities of gait and mobility (principal) | CPT/HCPCS: 97110; 97161 ==

== ENCOUNTER 2020-11-26 06:00 | Outpatient (RCR) | payer MEDICARE, MEDICAID, SELFPAY | END 2020-12-23 23:59 | disposition home or self-care (01) | LOC: SPT 06:00 | PROVIDERS: PCP Internal Medicine; Visit Provider Internal Medicine | DX: R26.9 Unspecified abnormalities of gait and mobility (principal) | CPT/HCPCS: 97110 ==

== ENCOUNTER 2020-12-24 06:00 | Outpatient (RCR) | payer MEDICARE, MEDICAID, SELFPAY | END 2021-01-09 16:35 | disposition home or self-care (01) | LOC: SPT 06:00 | PROVIDERS: PCP Internal Medicine; Visit Provider Internal Medicine | DX: R26.9 Unspecified abnormalities of gait and mobility (principal) | CPT/HCPCS: 97110 ==

== ENCOUNTER 2021-03-13 08:19 | Outpatient (CLI) | payer MEDICARE, MEDICAID, SELFPAY ==
--- NOTE | 2021-03-13 08:43 | XR_ITS ---
WS: [id number] Right hip, AP and frog leg view, 03/13/2021 Clinical Data: PAIN IN R HIP Comparison: Right hip, 08/13/2012. Findings: No fractures or dislocations are seen. The hip joint is intact. The soft tissues are not remarkable. The adjacent pelvis is normal. There is a small right acetabular lip. XR/XR hip RT 2-3V wo/w pel* [id number] Impression: Minimal right acetabular lip of the hip. Tonnis classification: grade 1: sclerosis of femoral head and acetabulum or sli ght joint space narrowing or slight lipping at joint margins
== END 2021-03-13 08:20 | disposition home or self-care (01) ==
PROVIDERS: PCP Internal Medicine; Visit Provider Internal Medicine
DX: M25.551 Pain in right hip (principal)
CPT/HCPCS: 73502

== ENCOUNTER → 2021-03-27 16:09 | Outpatient (BNVA) | payer MEDICARE, MEDICAID, SELFPAY | PROVIDERS: PCP Internal Medicine; Visit Provider Surgery | DX: Z12.11 Encounter for screening for malignant neoplasm of colon (principal); Z20.822 Contact with and (suspected) exposure to COVID-19 | CPT/HCPCS: 87635 ==

== ENCOUNTER 2021-04-02 06:26 | Day surgery (SDC) | payer MEDICARE, MEDICAID, SELFPAY ==
[2021-04-01 09:26] VITALS: BMI 36.8
--- NOTE | 2021-04-02 06:46 | ANES.PREANE2 ---
Pre-Anesthetic Assessment Pre-Anesthetic Assessment: Height/Weight: Height 1.45 m Weight 77.111 kg Preop Diagnosis: Cystocele stage III Proposed Procedure: Operation Date: 04/02/21 08:15 Proposed Procedures p Colonoscopy 45664 Z12.11(Not Applicable) - Saulo Cisneros MD Familial anesthetic complications: None Was Beta Jose taken within 24 hours: N/A Was Clonidine taken within 24 hours: N/A Last intake: > 8 hrs Social: Social History: No alcohol and No tobacco Exam: Pre-Anes Outpt Exam: alert, oriented x 3, clear to auscultation bilaterally and regular rate & rhythm Airway: Cervical ROM: WNL MP: 4 Dentition: False and Other Additional comments: large tongue Pulmonary: Pulmonary: COPD CV/HEM: CV/HEM: HTN (on lisinoplril) Metabolic: Metabolic: Hyperlipidemia, Morbid obesity and Thyroid Neuropsych: Neuropsych: 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 No further details ) Anesthetic Plan: ASA status: 3 Anesthesia: General and MAC Risk of > 500 ml blood loss (7ml/kg in children): No PFSH Anesthesia PFSH: Family History Son Diabetes Hypertension Heart attack Family/Other Diabetes grandson Hypertension grandson Social History Smoking and tobacco status: former smoker Quit status (tobacco): has quit using tobacco Year quit tobacco: 1984 Alcohol intake: never History of recent travel: No Female Reproductive History: Para: 1 Data Anesthesia Cardiac Studies: No Data to Display
[2021-04-02 08:00] VITALS: BP 171/73; PULSE 84; RESP 18; TEMP 36.4; O2SAT 97
[2021-04-02] MEDS: sodium chloride 0.9% 1,000 ML 30 ML IV (08:22)
[2021-04-02 09:07] VITALS: BP 101/62; PULSE 70; RESP 16; TEMP 36.1; O2SAT 95
[2021-04-02 09:19] VITALS: BP 99/64; PULSE 83; RESP 18; O2SAT 96
--- NOTE | 2021-04-02 21:21 | ANE.PACU2 ---
Inpatient post-anesthesia follow up: Airway intact: Yes Vital signs: Temperature 97.0 F Pulse Rate 83 Respiratory Rate 18 Blood Pressure 99/64 Pulse Oximetry 96 Oxygen Delivery Me thod Room Air Oxygen Flow Rate Fraction of Inspir ed Oxygen Hydration adequate: Yes Nausea and vomiting: No Pain level: 2 Mental status: Baseline
--- NOTE | 2021-04-03 14:48 | W.PM.OPSFHP ---
Same Day Surgery H&P Indication for Procedure/HPI DATE OF PROCEDURE: April 02, 2021 CHIEF COMPLAINT/INDICATIONFOR SURGICAL PROCEDURE: screening colonoscopy PREOP DIAGNOSIS: Cystocele stage III PLANNED PROCEDRUE: Operation Date: 04/02/21 08:15 Proposed Procedures p Colonoscopy 04874 Z12.11(Not Applicable) - Saulo Cisneros MD Medications/Allergies* Home Medications Medication Instructions Recorded Confirmed Type albuterol sulfate 2 puff INHALATION BID 12/04/19 04/02/21 History azelastine 2 spray INTRANASAL BID 12/04/19 04/02/21 History cetirizine 10 mg PO DAILY 12/04/19 04/02/21 History citalopram 20 mg PO DAILY 12/04/19 04/02/21 History fluticasone propionate 50 mcg INTRANASAL DAILY 12/04/19 04/02/21 History hydroxyzine HCl 25 mg PO BID 12/04/19 04/02/21 History levothyroxine 75 mcg PO DAILY 12/04/19 04/02/21 History omeprazole 40 mg PO BID 12/04/19 04/02/21 History simvastatin 40 mg PO DAILY 12/04/19 04/02/21 History triamcinolone acetonide 1 applic TOPICAL BID 12/04/19 04/02/21 History lisinopril 5 mg PO DAILY 04/02/21 04/02/21 History Allergies/Adverse Reactions Allergy/AdvReac Type Severity Reaction Status Date / Time No Known Allergies Allergy Verified 03/08/21 13:30 Pertinent History/Comorbid Conditions* Medical History (Updated 04/02/21 @ 09:05 by Saulo Cisneros MD) Anxiety and depression Dyslipidemia Hypertension Surgical History (Updated 04/02/21 @ 09:05 by Saulo Cisneros MD) H/O colonoscopy (04/02/21) normal S/P bladder repair 03/28/2020- anterior colporrhaphy augmented with allograft, bilateral sacrospinous ligament suspension and mid urethral sling S/P hysterectomy 01/10/13- per Dr. Redd on 01/10/2013 S/P tubal ligation Family History (Updated 01/03/20 @ 09:03 by Tata Jimenez RN) Diabetes Son Family/Other grandson Heart attack Son Hypertension Son Family/Other grandson Social History Smoking and tobacco status: former smoker Quit status (tobacco): has quit using tobacco Year quit tobacco: 1984 Alcohol intake: never History of recent travel: No Pertinent Exam Findings alert, oriented x 3 and regular rate & rhythm Recommendations Surgery/Procedure today Coding Level of Care Code Acute Hot Frame Tender for Mikael Landis
== END 2021-04-02 09:45 | disposition home or self-care (01) ==
PROVIDERS: PCP Internal Medicine; Visit Provider Surgery
PROC: 0DJD8ZZ Inspection of Lower Intestinal Tract, Via Natural or Artificial Opening Endoscopic (ICD-10-PCS; CPT 45378; principal; 2021-04-02 08:15)
DX: Z12.11 Encounter for screening for malignant neoplasm of colon (principal); E78.5 Hyperlipidemia, unspecified; I10 Essential (primary) hypertension; F41.9 Anxiety disorder, unspecified; F32.9 Major depressive disorder, single episode, unspecified; Z87.891 Personal history of nicotine dependence; J44.9 Chronic obstructive pulmonary disease, unspecified; E66.01 Morbid (severe) obesity due to excess calories; Z68.36 Body mass index [BMI] 36.0-36.9, adult; Z86.73 Personal history of transient ischemic attack (TIA), and cerebral infarction without residual deficits; Z82.49 Family history of ischemic heart disease and other diseases of the circulatory system; Z83.3 Family history of diabetes mellitus
CPT/HCPCS: 96360; G0121; J2704; J7030

== ENCOUNTER 2021-07-22 12:44 | Outpatient (CLI) | payer MEDICARE, MEDICAID, SELFPAY ==
--- NOTE | 2021-07-22 | XR_ITS ---
WS: [id number] CERVICAL SPINE TECHNIQUE: 3 views of the cervical spine CLINICAL INFORMATION: NECK PAIN COMPARISON: None. FINDINGS: Straightening of the normal cervical lordosis. Moderate spondylitic changes. Normal C1-C2 articulatio n. Disc space narrowing worse at C5-C6 and C6-C7. Normal C1-2 articulation. Slight retrolisthesis C5 on C6. XR/XR cervical spine 3V* [id number] IMPRESSION: 1. Straightening of the normal cervical lordosis. 2. Moderate spondylitic changes. 3. Disc space narrowing worse at C5-C7.
--- NOTE | 2021-07-22 | XR_ITS ---
WS: [id number] LUMBAR SPINE TECHNIQUE: 3 views of the lumbar spine CLINICAL INFORMATION: BACK PAIN COMPARISON: None. FINDINGS: Five [id number] lumbar vertebral bodies. Minimal lumbar curve. Slight anterolisthesis L4 on L5. Disc space narrowing lower thoracic spine with mild chronic anterior wedging. Hypertrophic changes lo wer thoracic and upper lumbar spine. Aortic calcification. Disc space narrowing lumbar spine L4-L5 an d L5-S1. Moderate facet arthropathy L4-L5 and L5-S1. XR/XR lumbar spine 2-3V* [id number] IMPRESSION: 1. No acute appearing compression fractures. 2. Slight anterolisthesis L4 on L5. Disc space narrowing lower thoracic and up per lumbar spine with anterior hypertrophic changes. 3. Disc space narrowing L4-L5 and L5-S1.
== END 2021-07-22 12:45 | disposition home or self-care (01) ==
PROVIDERS: PCP Internal Medicine; Visit Provider Internal Medicine
DX: M54.2 Cervicalgia (principal); M54.5 Low back pain
CPT/HCPCS: 72040; 72100

== ENCOUNTER 2021-07-23 10:33 | Outpatient (CLI) | payer MEDICARE, MEDICAID, SELFPAY ==
--- NOTE | 2021-07-23 10:36 | XR_ITS ---
WS: [id number] THORACIC SPINE TECHNIQUE: 3 views of the thoracic spine CLINICAL INFORMATION: BACK PAIN COMPARISON: None. FINDINGS: Mild spondylitic changes thoracic spine. Mild disc space narrowing in the lower thoracic spine. No ac rampart appearing compression fractures. Minimal chronic anterior wedging in the lower thoracic spine. Mo derate spondylitic changes in the cervical spine. XR/XR thoracic spine 3V* [id number] IMPRESSION: No acute thoracic spine findings.
== END 2021-07-23 10:34 | disposition home or self-care (01) ==
PROVIDERS: PCP Internal Medicine; Visit Provider Internal Medicine
DX: M54.6 Pain in thoracic spine (principal)
CPT/HCPCS: 72072

== ENCOUNTER 2021-08-19 08:41 | Outpatient (CLI) | payer MEDICARE, MEDICAID, SELFPAY ==
--- NOTE | 2021-08-19 08:48 | MM_ITS ---
WS: [id number] Exam: [id number] Date/Time of Exam: 08/19/2021 9:06 AM Reason For Exam: SCREENING VIEWS: MLO and CC views both breasts. Comparison made with prior exam of 04/15/2017, 08/19/2018, 11/01/2019.. Findings: There was no sign of mass, architectural distortion or suspicious calcification in either breast. Fa tty MM/[place] [id number] Impression: BI-RADS: 2-Benign FOLLOW-UP: 1 Year Follow-up This mammogram was also analyzed by the Computer Aided Detection System R2 Imag e Copper Tapper.
== END 2021-08-19 08:42 | disposition home or self-care (01) ==
LOC: RADSHAW 08:43
PROVIDERS: PCP Internal Medicine; Visit Provider Internal Medicine
DX: Z12.31 Encounter for screening mammogram for malignant neoplasm of breast (principal)
CPT/HCPCS: 77067

== ENCOUNTER → 2021-10-16 09:01 | Outpatient (BNVA) | payer MEDICARE, MEDICAID, SELFPAY | PROVIDERS: PCP Internal Medicine; Visit Provider Specialist | DX: G30.9 Alzheimer's disease, unspecified (principal); F02.80 Dementia in other diseases classified elsewhere, unspecified severity, without behavioral disturbance, psychotic disturbance, mood disturbance, and anxiety; Z87.891 Personal history of nicotine dependence | CPT/HCPCS: 99213 ==

== ENCOUNTER 2022-07-04 | Outpatient (RCR) | payer MEDICARE, MEDICAID, SELFPAY | END 2022-07-25 23:59 | disposition home or self-care (01) | LOC: SPT | PROVIDERS: PCP Internal Medicine; Visit Provider Nurse Practitioner Family | DX: R26.9 Unspecified abnormalities of gait and mobility (principal) | CPT/HCPCS: 95992; 97162 ==

== ENCOUNTER 2022-08-29 14:29 | Outpatient (CLI) | payer MEDICARE, MEDICAID, SELFPAY ==
--- NOTE | 2022-08-29 14:39 | MM_ITS ---
WS: [id number] BILATERAL 3D TOMOSYNTHESIS DIGITAL SCREENING MAMMOGRAPHY WITH CAD CLINICAL INFORMATION: SCREENING HISTORY: Screening mammogram. No current complaints. COMPARISON: August 19, 2021 TECHNIQUE: Bilateral CC and MLO views. FINDINGS: Bilateral breast reduction. Scattered fibroglandular densities bilaterally. No suspicious focal mass, asymmetry, calcifications, or architectural distortion. No evidence of malignancy. A few incidental calcifications. MM/[place] [id number] IMPRESSION: BI-RADS: 2-Benign FOLLOW UP: 1 Year Follow-up Recommend return to annual screening mammography.
== END 2022-08-29 14:30 | disposition home or self-care (01) ==
LOC: RAD 14:30
PROVIDERS: PCP Internal Medicine; Visit Provider Internal Medicine
DX: Z12.31 Encounter for screening mammogram for malignant neoplasm of breast (principal)
CPT/HCPCS: 77063; 77067

== ENCOUNTER → 2022-10-07 14:55 | Outpatient (BNVA) | payer MEDICARE, MEDICAID, SELFPAY | PROVIDERS: PCP Internal Medicine; Visit Provider Specialist | DX: G30.9 Alzheimer's disease, unspecified (principal); F02.80 Dementia in other diseases classified elsewhere, unspecified severity, without behavioral disturbance, psychotic disturbance, mood disturbance, and anxiety | CPT/HCPCS: 99213 ==

== ENCOUNTER 2023-05-15 11:04 | Outpatient (CLI) | payer MEDICARE, MEDICAID, SELFPAY ==
--- NOTE | 2023-05-15 | XR_ITS ---
WS: [id number] Exam: XR hip RT 2-3V wo/w pel* [id number] Date/Time of Exam: 05/15/2023 11:36 AM Reason For Exam: UNSPECIFIED FALL Comparison 03/13/2021. No acute fracture or dislocation. Mild DJD noted. Normal soft tissues. XR/XR hip RT 2-3V wo/w pel* [id number] IMPRESSION: 1. Mild degenerative change. No fracture.
== END 2023-05-15 11:05 | disposition home or self-care (01) ==
PROVIDERS: PCP Internal Medicine; Visit Provider Nurse Practitioner Family
DX: M25.551 Pain in right hip (principal); W19.XXXA Unspecified fall, initial encounter; M16.11 Unilateral primary osteoarthritis, right hip
CPT/HCPCS: 73502

== ENCOUNTER 2023-06-07 14:15 | Emergency (ER) | payer MEDICARE, MEDICAID, SELFPAY ==
[2023-06-07 14:37] VITALS: BP 115/79; PULSE 81; RESP 15; O2SAT 95
--- NOTE | 2023-06-07 14:41 | XRR_ITS ---
PROCEDURE INFORMATION: Exam: XR Right Hip Exam date and time: 06/07/2023 3:05 PM Age: 68 years old Clinical indication: Hip pain; Right hip TECHNIQUE: Imaging protocol: Radiologic exam of the right hip. Views: 1 view hip with pelvis when performed. COMPARISON: CR XR hip RT 2-3V wo/w pel* [id number] 05/15/2023 11:37 AM FINDINGS: Bones/joints: Mild joint space narrowing of the right hip is again present. No acute osseous injury. Soft tissues: Unremarkable. XR/XR hip RT 2-3V wo/w pel* [id number] IMPRESSION: No acute findings.
--- NOTE | 2023-06-07 14:53 | W.ED.BACK ---
HPI - Back Pain/Injury General: Chief Complaint: Back Pain/Injury Stated Complaint: low back/left hip pain Time Seen by Provider: 06/07/23 14:38 Source: patient Mode of arrival: ambulatory History of Present Illness: 68-year-old female presents emergency room complaining of right hip pain. This been going on for the last several weeks she had an x-ray done on May 15 showed arthritic changes but no acute fracture. She has seen her primary care doctor and been referred for therapy. She has had no falls since that original x-ray. She refers most of her pain to the lateral portion of the hip overlying the greater trochanter. She states that she has not been taking anything at home her primary care doctor did not give her anything when she was seen earlier in the week MD elicited complaint: other (Right hip pain) Onset (ago): week(s) Timing: constant Severity: moderate Quality: sharp Exacerbating factors: movement and other (Palpation) Relieving factors: other (Rest) Associated symptoms: Reports difficulty walking; Deny abdominal pain, arthralgias, chills, dysuria, fatigue, fever(s), hematuria, myalgias, nausea, numbness, syncope, tingling/numbness/burning, urinary frequency, urinary urgency, vomiting or weakness Review of Systems Const: Denies: fever(s), chills or fatigue Card: Denies: syncope Resp: Denies: dyspnea, productive cough or non-productive cough GI: Denies: abdominal pain, nausea or vomiting : Denies: dysuria, urinary frequency, urinary urgency or hematuria Skin/Breast: Denies: rash or pruritus Neuro: Reports: difficulty walking [facility] PFSH: Medical History Anxiety and depression Dyslipidemia Exposure to viral disease Hypertension Surgical History H/O colonoscopy (04/02/21) normal S/P bladder repair 03/28/2020- anterior colporrhaphy augmented with allograft, bilateral sacrospinous ligament suspension and mid urethral sling S/P hysterectomy 01/10/13- per Dr. Redd on 01/10/2013 S/P tubal ligation Family History Son Diabetes Hypertension Heart attack Family/Other Diabetes grandson Hypertension grandson Social History Smoking and tobacco status: former smoker Quit status (tobacco): has quit using tobacco Year quit tobacco: 1984 Alcohol intake: never Substance/Drug Use: never Female Reproductive History: Para: 1 Physical Exam Const: GENERAL APPEARANCE: cooperative and comfortable ORIENTATION/CONSCIOUSNESS: Yes awake, Yes oriented to person, Yes oriented to place and Yes oriented to time HENMT: COMMON NORMALS: normocephalic, atraumatic and hearing grossly normal bilaterally HEAD & SCALP: normocephalic and atraumatic Resp: COMMON NORMALS: normal respiratory effort, No retractions, No use of accessory muscles and clear to auscultation bilaterally AUSCULTATION: clear to auscultation bilaterally Cardio: COMMON NORMALS: regular rate, regular rhythm and No murmurs present (Cardio) RATE: regular rate RHYTHM: regular rhythm GI: COMMON NORMALS: Soft to palpation and No hepatosplenomegaly present AUSCULTATION: Yes normoactive bowel sounds PALPATION: Yes Soft to palpation, No Tenderness to palpation present (GI), No Guarding due to palpation present (GI) and Yes No hepatosplenomegaly present Extremity: COMMON NORMALS: capillary refill normal, no clubbing, cyanosis or edema, no calf tenderness and no pedal edema OTHER: Mild pain with palpation of the right greater greater trochanter. No pain referred into the groin flexion of the hip with no significant pain internal/external rotation reproduces mild pain some limited range of motion. Neuro: SENSORIUM/ORIENTATION: Yes oriented to person, Yes oriented to place and Yes oriented to time Skin: COMMON NORMALS: no rashes or lesions noted GENERAL SKIN EXAM: no rashes or lesions noted Course Vital Signs: Vital signs: Vital Signs Pulse Rate 81 06/07/23 14:37 Respiratory Rate 15 06/07/23 14:37 Blood Pressure 115/79 06/07/23 14:37 Pulse Oximetry 95 06/07/23 14:37 Oxygen Delivery Me thod Room Air 06/07/23 14:37 MDM - Back Pain/Injury Medical Decision Making Pain reproduced with palpation over the right greater trochanter. X-ray today is also negative. No recent trauma. Patient has not been taking any anti-inflammatories. We will start her on Medrol Dosepak diclofenac as needed follow-up with her primary care doctor return if is further problems. Medical Records I reviewed the patient's medical records. Labs I reviewed the patient's lab results. Discharge Plan Discharge Patient Disposition: Home Clinical Impression: Greater trochanteric bursitis of right hip Condition: Stable Prescriptions: New diclofenac sodium 75 mg tablet,delayed release (DR/EC) 75 mg PO Q12H PRN (Reason: pain) Qty: 20 0RF Medrol ([place]) 4 mg tablets,dose pack See Rx Instructions .ROUTE .COMPLEX Qty: 21 0RF Rx Instructions: orally per package directions Discontinued ibuprofen 600 mg tablet 600 mg PO TID PRN (Reason: fever or pain) Qty: 60 0RF No Action donepezil 10 mg tablet 10 mg PO DAILY Qty: 90 3RF memantine 10 mg tablet See Rx Instructions .ROUTE .COMPLEX Qty: 90 1RF Dose Instruction: TAKE 1 TABLET BY MOUTH DAILY Rx Instructions: TAKE 1 TABLET BY MOUTH DAILY lisinopril 5 mg tablet 5 mg PO DAILY cetirizine 10 mg tablet 10 mg PO DAILY omeprazole 40 mg capsule,delayed release(DR/EC) 40 mg PO BID triamcinolone acetonide 0.1 % cream 1 applic TOPICAL BID simvastatin 40 mg tablet 40 mg PO DAILY levothyroxine 75 mcg tablet 75 mcg PO DAILY citalopram 20 mg tablet 20 mg PO DAILY hydroxyzine HCl 25 mg tablet 25 mg PO BID azelastine 137 mcg (0.1 %) aerosol,spray 2 spray INTRANASAL BID albuterol sulfate 90 mcg/actuation HFA aerosol inhaler 2 puff INHALATION BID fluticasone propionate 50 mcg/actuation spray,suspension 50 mcg INTRANASAL DAILY Discharge Orders: Discharge ED (Routine); Ordered 06/07/23 Ordered By: Faisal Colin Referrals: [place] Hui MD [Primary Care Provider] - Discharge Diet: Usual diet Discharge Activity: Increase activity as tolerated Patient Instructions: Opioid Safety, Pain Management Activity Restrictions/Additional Instructions: Apply ice to the right hip 20 minutes at a time 3-4 times per day as needed for discomfort. Start diclofenac 1 every 12 hours as needed. Start steroid taper tomorrow. Follow-up with your primary care doctor. 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
[2023-06-07] MEDS: ketorolac 30 mg/mL INJ 15 MG IVP (14:54)
[2023-06-07] MEDS: dexamethasone 10 mg/mL INJ IVP (14:54)
== END 2023-06-07 15:33 | disposition home or self-care (01) ==
PROVIDERS: Emergency Provider Family Medicine; PCP Internal Medicine
DX: M70.61 Trochanteric bursitis, right hip (principal)
CPT/HCPCS: 73502; 96374; 96375; 99284; J1100; J1885

== ENCOUNTER 2023-06-26 12:48 | Outpatient (RCR) | payer MEDICARE, MEDICAID, SELFPAY | END 2023-07-25 23:59 | disposition home or self-care (01) | LOC: SPT 12:48 | PROVIDERS: PCP Internal Medicine; Visit Provider Internal Medicine | DX: M25.551 Pain in right hip (principal) | CPT/HCPCS: 95992; 97110 ==

== ENCOUNTER 2023-07-26 06:00 | Outpatient (RCR) | payer MEDICARE, MEDICAID, SELFPAY | END 2023-08-25 23:59 | disposition home or self-care (01) | LOC: SPT 06:00 | PROVIDERS: PCP Internal Medicine; Visit Provider Internal Medicine | DX: M25.551 Pain in right hip (principal) | CPT/HCPCS: 97110 ==

== ENCOUNTER 2023-09-07 14:55 | Outpatient (CLI) | payer MEDICARE, MEDICAID, SELFPAY ==
--- NOTE | 2023-09-07 15:01 | MM_ITS ---
WS: [id number] BILATERAL 3D TOMOSYNTHESIS DIGITAL SCREENING MAMMOGRAPHY WITH CAD CLINICAL INFORMATION: SCREENING HISTORY: Screening mammogram. History of bilateral breast reduction.. COMPARISON: 08/29/2022 TECHNIQUE: Bilateral CC and MLO views. FINDINGS: Scattered fibroglandular densities bilaterally. No suspicious focal mass, asymmetry, calcifications, or architectural distortion. No evidence of malignancy. A few incidental punctate calcifications. IMPRESSION: MM/[place] [id number] BI-RADS: 2-Benign FOLLOW UP: 1 Year Follow-up Recommend return to annual screening mammography.
== END 2023-09-07 14:56 | disposition home or self-care (01) ==
PROVIDERS: PCP Internal Medicine; Visit Provider Internal Medicine
DX: Z12.31 Encounter for screening mammogram for malignant neoplasm of breast (principal)
CPT/HCPCS: 77063; 77067

== ENCOUNTER → 2023-10-13 13:15 | Outpatient (BNVA) | payer MEDICARE, MEDICAID, SELFPAY | PROVIDERS: PCP Internal Medicine; Visit Provider Specialist | DX: R41.3 Other amnesia (principal); G30.9 Alzheimer's disease, unspecified; F02.80 Dementia in other diseases classified elsewhere, unspecified severity, without behavioral disturbance, psychotic disturbance, mood disturbance, and anxiety | CPT/HCPCS: 99213 ==

== ENCOUNTER → 2023-10-15 11:10 | Outpatient (BNVA) | payer MEDICARE, MEDICAID, SELFPAY | PROVIDERS: PCP Internal Medicine; Visit Provider Podiatrist Foot & Ankle Surgery | DX: M21.611 Bunion of right foot; M20.41 Other hammer toe(s) (acquired), right foot | CPT/HCPCS: 73630; 99203 ==

== ENCOUNTER → 2024-04-05 13:51 | Outpatient (BNVA) | payer MEDICARE, MEDICAID, SELFPAY | PROVIDERS: PCP Internal Medicine; Visit Provider Podiatrist Foot & Ankle Surgery | DX: M21.611 Bunion of right foot; M20.41 Other hammer toe(s) (acquired), right foot | CPT/HCPCS: 99213 ==

== ENCOUNTER → 2024-04-20 08:02 | Outpatient (BNVA) | payer MEDICARE, SELFPAY | PROVIDERS: PCP Internal Medicine; Visit Provider Specialist | DX: R41.3 Other amnesia (principal); G30.9 Alzheimer's disease, unspecified; F02.80 Dementia in other diseases classified elsewhere, unspecified severity, without behavioral disturbance, psychotic disturbance, mood disturbance, and anxiety | CPT/HCPCS: 99213 ==

== ENCOUNTER 2024-06-15 10:39 | Outpatient (RCR) | payer MEDICARE, MEDICAID, SELFPAY | END 2024-06-25 18:00 | disposition home or self-care (01) | LOC: SPT 10:39 | PROVIDERS: PCP Internal Medicine; Visit Provider Internal Medicine | DX: R26.89 Other abnormalities of gait and mobility (principal) | CPT/HCPCS: 97110; 97161 ==

== ENCOUNTER 2024-06-26 06:00 | Outpatient (RCR) | payer MEDICARE, MEDICAID, SELFPAY | END 2024-07-25 23:59 | disposition home or self-care (01) | LOC: SPT 06:00 | PROVIDERS: PCP Internal Medicine; Visit Provider Internal Medicine | DX: R26.89 Other abnormalities of gait and mobility (principal) | CPT/HCPCS: 97110 ==

== ENCOUNTER 2024-07-26 06:00 | Outpatient (RCR) | payer MEDICARE, MEDICAID, SELFPAY | END 2024-08-02 23:59 | disposition home or self-care (01) | LOC: SPT 06:00 | PROVIDERS: PCP Internal Medicine; Visit Provider Internal Medicine | DX: R26.89 Other abnormalities of gait and mobility (principal) | CPT/HCPCS: 97110 ==

== ENCOUNTER 2024-09-15 11:12 | Outpatient (CLI) | payer MEDICARE, MEDICAID, SELFPAY ==
--- NOTE | 2024-09-15 11:13 | MM_ITS ---
WS: [id number] VIEWS: MLO and CC views both breasts. 3D digital tomosynthesis is also included in this exam. Comparison made with prior exam of 01/31/2008, 01/23/2009, 04/13/2012, 08/16/2013, 11/20/2014, 12/14/2015, 04/15/2017, 03/19/2018, 11/01/2019, 08/19/2021, 08/29/2022, 09/07/2023.. Findings: The breasts are almost entirely fatty. No sign of suspicious mass, tumor calcification or architectural distortion. MM/MM scr BI tomosynthesis [id number] Impression: BI-RADS: 2 - Benign. FOLLOW-UP: 1 Year Follow-up This mammogram was also analyzed by the Computer Aided Detection System R2 Imag e Division Order Technician.
== END 2024-09-15 11:13 | disposition home or self-care (01) ==
LOC: RAD 11:14
PROVIDERS: PCP Internal Medicine; Visit Provider Internal Medicine
DX: Z12.31 Encounter for screening mammogram for malignant neoplasm of breast (principal)
CPT/HCPCS: 77063; 77067

== ENCOUNTER 2024-11-01 15:20 | Outpatient (CLI) | payer MEDICARE, MEDICAID, SELFPAY ==
--- NOTE | 2024-11-01 15:27 | XRR_ITS ---
PROCEDURE INFORMATION: Exam: XR Abdomen Exam date and time: 11/01/2024 3:48 PM Age: 69 years old Clinical indication: Abdominal pain; Generalized; Prior surgery; Surgery date: 6+ months; Surgery type: Breast, bladder; Patient HX: General stomach pain x 5 days, chest xray done ap due to patient being very unstable TECHNIQUE: Imaging protocol: Radiologic exam of the abdomen. Views: 2 Views. Upright and supine views. COMPARISON: CR XR KUB [id number] 06/29/2020 6:17 PM FINDINGS: Gastrointestinal tract: Normal. No bowel dilation. Intraperitoneal space: Normal. No free air. Bones/joints: Unremarkable for age. XR/XR abdomen 3V [id number] IMPRESSION: No acute findings.
== END 2024-11-01 15:21 | disposition home or self-care (01) ==
LOC: RAD 15:24
PROVIDERS: PCP Internal Medicine; Visit Provider Nurse Practitioner Family
DX: R10.9 Unspecified abdominal pain (principal); Z98.890 Other specified postprocedural states
CPT/HCPCS: 74021

== ENCOUNTER → 2024-11-23 13:30 | Outpatient (BNVA) | payer MEDICARE, MEDICAID, SELFPAY | PROVIDERS: PCP Internal Medicine; Visit Provider Podiatrist Foot & Ankle Surgery | DX: M21.611 Bunion of right foot; M20.41 Other hammer toe(s) (acquired), right foot | CPT/HCPCS: 99213 ==

== ENCOUNTER → 2025-05-10 07:56 | Outpatient (BNVA) | payer MEDICARE, MEDICAID, SELFPAY | PROVIDERS: PCP Internal Medicine; Visit Provider Specialist | DX: R41.3 Other amnesia (principal); G30.9 Alzheimer's disease, unspecified; F02.80 Dementia in other diseases classified elsewhere, unspecified severity, without behavioral disturbance, psychotic disturbance, mood disturbance, and anxiety | CPT/HCPCS: 99213 ==

== ENCOUNTER → 2025-06-12 07:20 | Outpatient (BNVA) | payer MEDICARE, MEDICAID, SELFPAY | PROVIDERS: PCP Internal Medicine; Visit Provider Podiatrist Foot & Ankle Surgery | DX: M21.611 Bunion of right foot (principal); M20.41 Other hammer toe(s) (acquired), right foot | CPT/HCPCS: 99214 ==

== ENCOUNTER → 2025-09-14 10:09 | Outpatient (BNVA) | payer MEDICARE, MEDICAID, SELFPAY | PROVIDERS: PCP Internal Medicine; Visit Provider Podiatrist Foot & Ankle Surgery | DX: M21.611 Bunion of right foot (principal); M20.41 Other hammer toe(s) (acquired), right foot; M79.671 Pain in right foot; L21.8 Other seborrheic dermatitis; L72.0 Epidermal cyst; L82.1 Other seborrheic keratosis; D48.5 Neoplasm of uncertain behavior of skin | CPT/HCPCS: 11102; 99203; 99214 ==

== ENCOUNTER 2025-09-22 10:51 | Outpatient (CLI) | payer MEDICARE, MEDICAID, SELFPAY ==
--- NOTE | 2025-09-22 | MM_ITS ---
WS: [id number] BILATERAL 3D TOMOSYNTHESIS DIGITAL SCREENING MAMMOGRAPHY WITH CAD CLINICAL INFORMATION: ANNUAL SCREENING HISTORY: Screening mammogram. No current complaints. History of breast reduction COMPARISON: 2023 TECHNIQUE: Bilateral CC and MLO views. FINDINGS: Scattered fibroglandular densities bilaterally. No suspicious focal mass, asymmetry, calcifications, or architectural distortion. No evidence of malignancy. A few incidental punctate calcifications. MM/MM scr tomosynthesis [id number] IMPRESSION: DENSITY: There are scattered areas of fibroglandular density. BI-RADS: 2 - Benign. FOLLOW UP: 1 Year Follow-up Recommend return to annual screening mammography.
== END 2025-09-22 10:52 | disposition home or self-care (01) ==
LOC: RAD 10:52
PROVIDERS: PCP Internal Medicine; Visit Provider Internal Medicine
DX: Z12.31 Encounter for screening mammogram for malignant neoplasm of breast (principal); R92.323 Mammographic fibroglandular density, bilateral breasts; R92.1 Mammographic calcification found on diagnostic imaging of breast
CPT/HCPCS: 77063; 77067